=== PATIENT | male | born 1935 | race Caucasian/White ===

== ENCOUNTER 2016-05-12 10:56 | Day surgery (SDC) | payer MEDICARE, BC ==
[2016-05-12] VITALS (8 sets, daily range): BP systolic 137–149; BP diastolic 47–91; PULSE 58–86; TEMP 97.6–98.7
[~2016-05-12] VITALS: Ht 177.8 cm; Wt 74.1 kg
[~2016-05-12 10:56] MED LIST: 00186-0370-20 IH; ANTIVERT 25MG25 MG PO; ASPIRIN 81M81 MG/TA2 PO; ASPIRIN E.C. 8181 MG PO; CARDIZEM CD 12120 MG PO; CEPHALEXIN500 M1 PO; COLACE 100100 MG/CAP PO; COLACE100 MG PO; COREG 6.256.25 MG/TA PO; COUMADIN 3MG3 MG/TAB PO; COUMADIN 5MG5 MG/TAB PO; COUMADIN3 MG PO; COUMADIN4 MG PO; COZAAR 25MG25 MG/TAB PO; DILTIAZEM ER180 MG PO; DILTIAZEM ER240 MG PO; ELIQUIS 2.5 PO; FLOMAX 0.40.4 MG/CAP PO; GLUCOSAMINE & C1 CA1 PO; HYDROCORTISO28.35 GM TOP; LANOXIN 0.120.125 MG PO; LANOXIN 0.25M0.25 MG PO; LASIX 20MG TABL20 MG PO; LESCOL XL80 MG PO; LIPITOR20 MG PO; LISINOPRIL20 MG PO; LOPRESSOR 225 MG/TAB PO; MACROBID 1100 MG/CAP PO; MECLICOT25 MG PO; MULTAQ400 MG PO; MULTIPLE VITAMI1 CAP PO; MULTIPLE VITAMI1 TA5 PO; NORCO 325 MG-51 TAB PO; OMNICEF 300MG300 MG PO; OSTEO-BI-FLEX 21 TAB PO; OYSTER CALCIUM500 M1 PO; PACERONE100 MG PO; PACERONE200 MG PO; PACERONE400 MG PO; PREDNISONE10 MG PO; PRILOSEC 10MG C10 MG PO; RANITIDINE150 MG PO; SENOKOT8.6 MG PO; SIMVASTATIN20 MG PO; STOOL SOFTENER100 M1 PO; STOOL SOFTENER100 M2 PO; SYNTHROID0.125 MG/T PO; SYNTHROID0.137 MG PO; SYNTHROID0.15 MG PO; TRIAMCINOLONE0.1% TP
[2016-05-12] MEDS ORDERED: STOOL SOFTENER100 M2 PO (12:10)
[2016-05-12] MEDS ORDERED: CEPHALEXIN500 M1 PO (15:59)
[2016-05-12] MEDS ORDERED: NORCO 325 MG-51 TAB PO (15:59)
== END 2016-05-12 17:00 | disposition home or self-care (01) ==
LOC: SDCO 10:56
DX: N99.112 Postprocedural membranous urethral stricture, male (principal); Z85.46 Personal history of malignant neoplasm of prostate; Z92.3 Personal history of irradiation; I10 Essential (primary) hypertension; E07.9 Disorder of thyroid, unspecified; Z86.73 Personal history of transient ischemic attack (TIA), and cerebral infarction without residual deficits; N40.0 Benign prostatic hyperplasia without lower urinary tract symptoms; R31.0 Gross hematuria; I25.10 Atherosclerotic heart disease of native coronary artery without angina pectoris; Z79.899 Other long term (current) drug therapy; Z79.01 Long term (current) use of anticoagulants
CPT/HCPCS: C1769; J0690; J1100; J2405; J2704; J3010; J7120

== ENCOUNTER 2016-09-02 07:30 | Observation (INO) | payer MEDICARE, BC ==
[~2016-09-02] VITALS: Ht 177.8 cm; Wt 76.9 kg
[2016-09-02] VITALS (11 sets, daily range): BP systolic 100–160; BP diastolic 54–88; PULSE 52–66; TEMP 97.6–98.7
[2016-09-02] MEDS ORDERED: SYNTHROID0.125 MG/T PO (09:00)
[2016-09-02] MEDS ORDERED: LOPRESSOR 225 MG/TAB PO (09:01)
[2016-09-02] MEDS ORDERED: OSTEO-BI-FLEX 21 TAB PO (09:03)
[2016-09-02] MEDS ORDERED: PRINIVIL2.5 MG PO (09:04)
[2016-09-02 09:12] LABS: CALCIUM 8.1 mg/dL (8.4-10.2); CREATININE, serum 2.53 mg/dL (0.66-1.25); POTASSIUM 4.7 mmol/L (3.4-5.0)
[2016-09-03 01:59] VITALS: BP 102/57; PULSE 62; TEMP 97.9
[2016-09-03 06:24] VITALS: BP 128/65; PULSE 61; TEMP 97.8
[2016-09-03 09:54] VITALS: BP 123/69; PULSE 60; TEMP 98.5
[2016-09-03 14:28] VITALS: BP 133/77; PULSE 64; TEMP 98.4
== END 2016-09-03 14:45 | disposition home or self-care (01) ==
LOC: SDCO 07:30 → SURG 12:00 → SDCO 09-03 14:46 → SURG 09-03 14:46
PROVIDERS: Nurse Anesthetist, Certified Registered
DX: N99.112 Postprocedural membranous urethral stricture, male (principal); I25.10 Atherosclerotic heart disease of native coronary artery without angina pectoris; E03.9 Hypothyroidism, unspecified; I13.0 Hypertensive heart and chronic kidney disease with heart failure and stage 1 through stage 4 chronic kidney disease, or unspecified chronic kidney disease; N18.9 Chronic kidney disease, unspecified; I50.9 Heart failure, unspecified; I08.0 Rheumatic disorders of both mitral and aortic valves; M19.90 Unspecified osteoarthritis, unspecified site; Z85.46 Personal history of malignant neoplasm of prostate; Z79.01 Long term (current) use of anticoagulants; Z86.73 Personal history of transient ischemic attack (TIA), and cerebral infarction without residual deficits; Z92.3 Personal history of irradiation; Z80.9 Family history of malignant neoplasm, unspecified
CPT/HCPCS: OP; C1726; C1769; J0690; J1100; J2370; J2405; J2704; J3010; J7030

== ENCOUNTER → 2016-09-16 | Outpatient (CLI) | payer MEDICARE, BC ==
[~2016-09-16] MED LIST changes: +COUMADIN 2MG2 MG/TAB PO; +PRINIVIL2.5 MG PO; +SODIUM BICARBO650 MG PO
[2016-09-16 11:18] LABS: CREATININE, serum 2.51 mg/dL (0.66-1.25)
== END ==
LOC: COL.RAD 09:11
PROVIDERS: Urology
DX: C79.51 Secondary malignant neoplasm of bone (principal); R91.1 Solitary pulmonary nodule; N13.30 Unspecified hydronephrosis; N28.1 Cyst of kidney, acquired
CPT/HCPCS: A9503

== ENCOUNTER → 2016-10-06 | Outpatient (CLI) | payer MEDICARE, BC ==
[2016-10-06 14:33] LABS: HEMATOCRIT 34.8 % (42.0-52.0); HEMOGLOBIN 11.7 g/dl (13.5-18.0); MEAN CELL VOLUME 101 fl (80.0-100.0); MEAN CORPUSCULAR HEMOGLOBIN 34 pg (27.0-31.0); MEAN CORPUSCULAR HGB CONC 34 g/dl (33.0-37.0); MEAN PLATELET VOLUME 9.6 fl (7.4-10.4); PLATELET COUNT 173 K/mm3 (130-400); RED BLOOD COUNT 3.44 M/mm3 (4.20-5.60)
[2016-10-06 14:43] LABS: AMYLASE 42 U/L (30-110); ANION GAP 10 mmol/L (7-16); BLOOD UREA NITROGEN 38 mg/dL (9-20); CALCIUM 8.6 mg/dL (8.4-10.2); CARBON DIOXIDE 22 mmol/L (22-30); CHLORIDE 107 mmol/L (98-107); GLUCOSE 99 mg/dL (74-106); LIPASE 43 U/L (23-300); MAGNESIUM 2.4 mg/dL (1.6-2.3); PHOSPHOROUS 3.8 mg/dL (2.5-4.5); POTASSIUM 4.9 mmol/L (3.4-5.0); SODIUM 139 mmol/L (137-145)
[2016-10-06 14:53] LABS: B-TYPE NATRIURETIC PEPTIDE 719 pg/mL (0-450)
[2016-10-06 14:56] LABS: ERYTHROCYTE SEDIMENTATION RATE 14 mm/hr (0-30)
[2016-10-06 15:09] LABS: TROPONIN-I < 0.012 ng/mL (0.000-0.034)
[2016-10-06 16:22] LABS: ARTERIAL BLOOD GAS pH 7.41 (7.35-7.45)
[2016-10-06 16:23] LABS: ALLEN TEST YES; ALLENS TEST RESULT PASS; ARTERIAL BLD GAS O2 SATURATION 96.6 % (92-100); ARTERIAL BLOOD GAS BASE EXCESS -2.7 (-2-2); ARTERIAL BLOOD GAS HCO3 21.2 meq/L (22-26); ATS? YES
[2016-10-06 16:24] LABS: ARTERIAL BLD GAS TCO2 CT 22.2
== END ==
LOC: COL.PUL 05-16 10:00 → COL.RAD 13:07
PROVIDERS: Internal Medicine Interventional Cardiology
DX: R42 Dizziness and giddiness (principal); R06.02 Shortness of breath

== ENCOUNTER 2016-11-15 09:59 | Inpatient (IN) | payer MEDICARE, BC ==
[~2016-11-15] VITALS: Ht 177.8 cm; Wt 73.9 kg
[2016-11-15] VITALS (549 sets, daily range): BP systolic 81–142; BP diastolic 63–84; PULSE 66–125; TEMP 97.6–98; O2SAT 46–100
[~2016-11-15 09:59] MED LIST changes: -COUMADIN 2MG2 MG/TAB PO; -SODIUM BICARBO650 MG PO
[2016-11-15 10:19] LABS: BASO % 0.4 % (0.0-2.0); EOS % 0.3 % (0-4.0); GRAN # 7.8 (1.4-6.5); LYMPH # 1.1 (1.2-3.4); LYMPH % 11.1 % (20.0-51.0); MEAN CELL VOLUME 103 fl (80.0-100.0); MEAN CORPUSCULAR HGB CONC 33 g/dl (33.0-37.0); MEAN PLATELET VOLUME 9.7 fl (7.4-10.4); MONO # 0.8 (0.1-0.6); MONO % 8.5 % (1.7-9.3); PLATELET COUNT 292 K/mm3 (130-400); RED BLOOD COUNT 3.49 M/mm3 (4.20-5.60); REDCELL DISTRIBUTION WIDTH-CV 11.9 % (11.5-14.5); WHITE BLOOD COUNT 9.9 K/mm3 (4.8-10.8)
[2016-11-15 10:22] LABS: HEMATOCRIT 35.9 % (42.0-52.0); HEMOGLOBIN 11.8 g/dl (13.5-18.0); MEAN CORPUSCULAR HEMOGLOBIN 34 pg (27.0-31.0)
[2016-11-15 10:25] LABS: INR 3.8 (0.8-3.0); PROTHROMBIN TIME 44.2 SECONDS (9.7-12.8)
[2016-11-15 10:27] LABS: PARTIAL THROMBOPLASTIN TIME 43.3 SECONDS (26.0-37.0)
[2016-11-15 10:29] LABS: ADJUSTED CALCIUM 8.9 mg/dL (8.4-10.2); ALBUMIN 3.7 gm/dL (3.5-5.0); BILIRUBIN,TOTAL 0.7 mg/dL (0.0-1.0); CALCIUM 8.7 mg/dL (8.4-10.2); CREATININE, serum 2.98 mg/dL (0.66-1.25); POTASSIUM 4.8 mmol/L (3.4-5.0)
[2016-11-15 10:50] LABS: TROPONIN-I 0.08 ng/mL (0.000-0.034)
[2016-11-15] MEDS ORDERED: COUMADIN 2MG2 MG/TAB PO (14:27)
[2016-11-15] MEDS ORDERED: FLOMAX 0.40.4 MG/CAP PO (14:28)
[2016-11-15 14:47] LABS: THYROID STIMULATING HORMONE 5.67 uIU/mL (0.465-4.680)
[2016-11-15 19:08] LABS: PH 5 (5-8); SQUAMOUS EPITHELIAL None Seen /hpf; URINE APPEARANCE Cloudy; URINE BACTERIA Moderate /hpf; URINE BILIRUBIN Negative (NEGATIVE); URINE BLOOD 1+ (NEGATIVE); URINE COLOR Yellow; URINE GLUCOSE Negative (NEGATIVE); URINE KETONE Negative (NEGATIVE); URINE UROBILINOGEN Negative (NEGATIVE); URINE WBC >50 /hpf
[2016-11-16] VITALS (452 sets, daily range): BP systolic 108–135; BP diastolic 67–85; PULSE 59–70; TEMP 97–98.4; O2SAT 91–99
[2016-11-16 06:15] LABS: BASO % 0.5 % (0.0-2.0); EOS # 0.1 (0.0-0.7); EOS % 1.2 % (0-4.0); GRAN # 6.1 (1.4-6.5); GRAN % 74.6 % (42.2-75.2); LYMPH # 1.1 (1.2-3.4); LYMPH % 13.7 % (20.0-51.0); MEAN CELL VOLUME 104 fl (80.0-100.0); MEAN CORPUSCULAR HGB CONC 33 g/dl (33.0-37.0); MEAN PLATELET VOLUME 9.8 fl (7.4-10.4); MONO # 0.8 (0.1-0.6); MONO % 9.3 % (1.7-9.3); PLATELET COUNT 262 K/mm3 (130-400); RED BLOOD COUNT 2.92 M/mm3 (4.20-5.60); REDCELL DISTRIBUTION WIDTH-CV 11.9 % (11.5-14.5); WHITE BLOOD COUNT 8.2 K/mm3 (4.8-10.8)
[2016-11-16 06:16] LABS: HEMATOCRIT 30.4 % (42.0-52.0); HEMOGLOBIN 9.9 g/dl (13.5-18.0); MEAN CORPUSCULAR HEMOGLOBIN 34 pg (27.0-31.0)
[2016-11-16 06:19] LABS: INR 4.5 (0.8-3.0)
[2016-11-16 06:20] LABS: PROTHROMBIN TIME 52.8 SECONDS (9.7-12.8)
[2016-11-16 06:29] LABS: ADJUSTED CALCIUM 8.8 mg/dL (8.4-10.2); ALBUMIN 3.1 gm/dL (3.5-5.0); BILIRUBIN,TOTAL 0.5 mg/dL (0.0-1.0); CALCIUM 8.1 mg/dL (8.4-10.2); CREATININE, serum 2.38 mg/dL (0.66-1.25); POTASSIUM 4.7 mmol/L (3.4-5.0); TOTAL PROTEIN 5.9 gm/dL (6.4-8.2)
[2016-11-16 06:50] LABS: TROPONIN-I 0.153 ng/mL (0.000-0.034)
[2016-11-16] MEDS ORDERED: SODIUM BICARBO650 MG PO (11:26)
[2016-11-16] MEDS ORDERED: PACERONE400 MG PO (11:27)
== END 2016-11-16 13:55 | disposition home or self-care (01) | DRG 309 ==
LOC: COL.ER 09:59 → ICU 11:13 → EDBEDREQ 11:55 → ICU 12:24
PROVIDERS: Family Medicine; Nurse Practitioner Family
PROC: 5A2204Z Restoration of Cardiac Rhythm, Single (ICD-10-PCS; principal; 2016-11-15)
DX: I48.0 Paroxysmal atrial fibrillation (principal); N17.9 Acute kidney failure, unspecified; C79.51 Secondary malignant neoplasm of bone; E87.2 Acidosis; I50.32 Chronic diastolic (congestive) heart failure; I48.92 Unspecified atrial flutter; N18.3 Chronic kidney disease, stage 3 (moderate); I25.10 Atherosclerotic heart disease of native coronary artery without angina pectoris; I08.0 Rheumatic disorders of both mitral and aortic valves; Z85.46 Personal history of malignant neoplasm of prostate; Z85.51 Personal history of malignant neoplasm of bladder; D63.1 Anemia in chronic kidney disease; Z79.01 Long term (current) use of anticoagulants
CPT/HCPCS: 99223-AI; 99239; J0282; J0696; J2916; J7030; J7050; J7060

== ENCOUNTER → 2017-01-02 | Outpatient (CLI) | payer MEDICARE, BC ==
[~2017-01-02] MED LIST changes: +COUMADIN 2MG2 MG/TAB PO; +SODIUM BICARBO650 MG PO
== END ==
LOC: COL.RAD 07:58
DX: C67.9 Malignant neoplasm of bladder, unspecified (principal); R91.8 Other nonspecific abnormal finding of lung field; M89.9 Disorder of bone, unspecified

== ENCOUNTER → 2017-03-15 | Outpatient (CLI) | payer MEDICARE, BC | LOC: COL.RAD 12:14 | DX: C79.51 Secondary malignant neoplasm of bone (principal); Z96.89 Presence of other specified functional implants ==